=== PATIENT | male | born 1995 | race African-American/Black ===

== ENCOUNTER 2016-11-02 14:08 | Emergency (ER) | payer OTHER ==
[2016-11-02 14:21] VITALS: BP 123/76
--- NOTE | 2016-11-02 14:39 | UC ---
Eye Complaint HPI - HPI Summary HPI Summary: Pt presents with c/o bilateral "red eyes". Pt has c/o "itchy, tender, red eyes " X 1 week. Pt was seen by [facility] and given ciprofloxcin eye drops. Pt has been using drops as directed with no improvement. - History of Current Complaint Chief Complaint: UCEye Stated Complaint: BILATERAL EYE COMPLAINT Time Seen by Provider: 11/02/16 14:13 Hx Obtained From: Patient Onset/Duration: Gradual Onset, Lasting Days - 7, Still Present Timing: Constant Severity Initially: Mild Severity Currently: Mild Location of Injury: Other - no injury Character: Dull Aggravating Factor(s): Nothing Alleviating Factor(s): Nothing Associated Signs And Symptoms: Positive: Drainage (Clear) - Risk Factors Acute Glaucoma Risk Factors: Negative - Allergies/Home Medications Allergies/Adverse Reactions: Allergies Allergy/AdvReac Type Severity Reaction Status Date / Time No Known Allergies Allergy Verified 11/02/16 14:15 Home Medications: Home Medications NK [No Home Medications Reported] 11/02/16 [History Confirmed 11/02/16] PMH/Surg Hx/FS Hx/Imm Hx Previously Healthy: Yes - Surgical History Surgical History: None - Family History Known Family History: Positive: Other - Positive PMH for URI - Social History Occupation: Student Lives: With Family Alcohol Use: Occasionally Substance Use Type: None Smoking Status (MU): Never Smoked Tobacco Have You Smoked in the Last Year: No Review of Systems Constitutional: Negative Skin: Negative Eyes: Drainage - clear, Eye Redness ENT: Negative Respiratory: Negative Cardiovascular: Negative Gastrointestinal: Negative Genitourinary: Negative Motor: Negative Neurovascular: Negative Musculoskeletal: Negative Neurological: Negative Psychological: Negative All Other Systems Reviewed And Are Negative: Yes Physical Exam Triage Information Reviewed: Yes Appearance: Well-Appearing Vital Signs: Initial Vital Signs Temp 99.5 F 11/02/16 14:16 Pulse 87 11/02/16 14:16 Resp 16 11/02/16 14:16 BP 123/76 11/02/16 14:16 Pulse Ox 99 11/02/16 14:16 Vital Signs Reviewed: Yes Eyes: Positive: Conjunctiva Inflamed, Discharge - clear, Other: - scleritis ENT Exam: Normal Dental Exam: Normal Neck exam: Normal Respiratory Exam: Normal Cardiovascular Exam: Normal Musculoskeletal Exam: Normal Neurological Exam: Normal Psychological Exam: Normal Skin Exam: Normal Eye Complaint Course/Dx - Differential Dx/Diagnosis Differential Diagnosis/HQI/PQRI: Conjunctivitis Provider Diagnoses: allergic conjunctivitis Discharge - Discharge Plan Condition: Stable Disposition: HOME Patient Education Materials: Conjunctivitis (ED) Referrals: [facility] [Outside] Abdiel Deleon OD [Doctor of Osteopathy] - Non Staff,Doctor [Primary Care Provider] - Additional Instructions: Please follow up with your PCP or return to clinic. We have provided a referral to an eye care provider for if you to follow up as needed. Please discontinue the prescription eye drops given to you from [facility] [place]. Please try OTC Zatidor eye drops. If you do not see any improvement in 24 hours please discontinue use of those drops.
== END 2016-11-02 14:54 | disposition home or self-care (01) ==
LOC: UCCORT 14:08
DX: H10.13 Acute atopic conjunctivitis, bilateral (principal)
CPT/HCPCS: 99212; G0463